=== PATIENT | male | born 1965 | race Caucasian/White ===

== ENCOUNTER 2022-11-25 19:06 | Inpatient (IN) | payer OTHER ==
[2022-11-25 19:40] VITALS: RESP 16; BMI 25.3
[2022-11-25] MEDS ORDERED: BISMUTH SUBSALICYLATE 524 MG/30 ML PO PRN (20:35)
[2022-11-25] MEDS ORDERED: MAGNESIUM HYDROX 2400MG/30ML ORAL SUSPENSION 30 ML CUP PO PRN (20:35)
[2022-11-25] MEDS ORDERED: BENZOCAINE/MENTHOL (CHLORASEPTIC ) LOZENGE MM PRN (20:35)
[2022-11-25] MEDS ORDERED: MELATONIN 5 MG TABLETS PO PRN (20:35)
[2022-11-25] MEDS ORDERED: P-EPHED 60MG/TRIPROLIDI 2.5MG TABLET PO PRN (20:35)
[2022-11-25] MEDS ORDERED: guaiFENesin 600 MG TABLET.ER (FP) PO PRN (20:35)
[2022-11-25] MEDS ORDERED: LOPERAMIDE HCL 2 MG CAPSULE PO PRN (20:35)
[2022-11-25] MEDS ORDERED: METHOCARBAMOL 500 MG TABLET PO PRN (20:35)
[2022-11-25] MEDS ORDERED: NICOTINE POLACRILEX 2 MG GUM BUC PRN (20:35)
[2022-11-25] MEDS ORDERED: MAG HYDROX/AL HYDROX/SIMETH 30 ML UNIT-DOSE CUP PO PRN (20:35)
[2022-11-25] MEDS ORDERED: IBUPROFEN 400 MG TABLET (FP) PO PRN (20:35)
[2022-11-25] MEDS ORDERED: ONDANSETRON *ODT* 4 MG TABLET SL PRN (20:35)
[2022-11-25] MEDS ORDERED: DICYCLOMINE HCL 10 MG CAPSULE PO PRN (20:35)
[2022-11-25] MEDS ORDERED: IBUPROFEN 600 MG TABLET (FP) PO PRN (20:35)
[2022-11-25] MEDS ORDERED: ACETAMINOPHEN 325 MG TABLET (FP) PO PRN (20:35)
[2022-11-25] MEDS ORDERED: hydrOXYzine PAMOATE 25 MG CAPSULE (FP) PO PRN (20:35)
[2022-11-25] MEDS ORDERED: BENZONATATE 200 MG CAPSULE PO PRN (20:35)
[2022-11-25] MEDS ORDERED: POLYETHYLENE GLYCOL (HEALTHYLAX) 3350 17 GM PACKET PO PRN (20:35)
[2022-11-25] MEDS ORDERED: NICOTINE 10 MG CARTRIDGE (INHALER) IH PRN (20:35)
[2022-11-25] MEDS ORDERED: THIAMINE HCL 100 MG TABLET (FP) PO SCH (22:00)
[2022-11-25] MEDS ORDERED: ATORVASTATIN CA 40 MG TABLET (FP) PO SCH (23:10)
[2022-11-25] MEDS: ASPIRIN 81 MG CHEWABLE TABLETS PO SCH (23:28)
[2022-11-25] MEDS: CARVEDILOL 3.125 MG TABLET (FP) PO SCH (23:28)
[2022-11-26 09:58] VITALS: BP 134/80; PULSE 84; TEMP 98.2
[2022-11-26] MEDS: ASPIRIN 81 MG CHEWABLE TABLETS PO SCH (09:59)
[2022-11-26] MEDS: CARVEDILOL 3.125 MG TABLET (FP) PO SCH (09:59)
[2022-11-26] MEDS ORDERED: PRENATAL VITAMINS W/ FOLIC ACID TABLET (FP) PO SCH (10:00)
[2022-11-26] MEDS ORDERED: PANTOPRAZOLE 40 MG TABLET PO SCH (10:00)
[2022-11-26] MEDS ORDERED: PRASUGREL HCL 10 MG TAB PO SCH (10:00)
[2022-11-26] MEDS ORDERED: LISINOPRIL 10 MG TABLET PO SCH (10:00)
== END 2022-11-26 09:33 | disposition home or self-care (01) | DRG 775 ==
LOC: YASAS 19:06 → Y3N 21:06
PROVIDERS: ADMIT Allergy & Immunology; ATTEND Surgery
PROC: HZ2ZZZZ Detoxification Services for Substance Abuse Treatment (ICD-10-PCS; principal; 2022-11-25)
DX: F10.10 Alcohol abuse, uncomplicated (principal); F17.210 Nicotine dependence, cigarettes, uncomplicated; E78.5 Hyperlipidemia, unspecified; I25.10 Atherosclerotic heart disease of native coronary artery without angina pectoris; I10 Essential (primary) hypertension; Z95.5 Presence of coronary angioplasty implant and graft
CPT/HCPCS: 0241U-QW; 36415; 80053; 83735; 84100; 85025; 99282-25